=== PATIENT | female | born 1990 | race Caucasian/White ===

== ENCOUNTER 2017-06-08 11:12 | Emergency (ER) | payer MEDICAID ==
[~2017-06-08] VITALS: Ht 167.6 cm; Wt 102.2 kg
[2017-06-08 14:44] VITALS: BP 142/87
== END 2017-06-08 14:44 | disposition home or self-care (01) ==
LOC: ED 11:12
DX: S29.012A Strain of muscle and tendon of back wall of thorax, initial encounter (principal); X58.XXXA Exposure to other specified factors, initial encounter; Y93.89 Activity, other specified; Y92.89 Other specified places as the place of occurrence of the external cause; Y99.8 Other external cause status
CPT/HCPCS: 72072; J1885

== ENCOUNTER 2018-07-07 15:44 | Inpatient (IN) | payer OTHER ==
[~2018-07-07] VITALS: Ht 167.6 cm; Wt 104.9 kg
[2018-07-07 16:00] VITALS: Ht 167.6 cm; Wt 104.9 kg
[2018-07-07 17:28] LABS: BASOPHIL % 0.4 % (0-2); PLATELET COUNT 236 x10^3mcL (130-400); RED CELL DISTRIBUTION WIDTH 13.6 % (11.5-14.5)
[2018-07-07 17:32] LABS: CARBON DIOXIDE 26.8 mmol/L (21-32); CHLORIDE SERUM 100 mmol/L (98-107); CREATININE SERUM 0.7 mg/dL (0.6-1.0); GFR1 > 60 mL/min; GLUCOSE SERUM 165 mg/dL (74-106); POTASSIUM SERUM 3.5 mmol/L (3.5-5.1); SODIUM SERUM 133 mmol/L (136-145)
[2018-07-07 17:33] LABS: ALKALINE PHOSPHATASE 105 U/L (46-116); ALT/SGPT 109 U/L (14-59); AST/SGOT 34 U/L (15-37); BILIRUBIN TOTAL 0.8 mg/dL (0.20-1.00); TOTAL PROTEIN, SERUM 8.1 g/dL (6.4-8.2)
[2018-07-07 19:55] LABS: CHOLESTEROL/HDL RATIO 4.2; MAGNESIUM 1.7 mg/dL (1.8-2.4); PHOSPHOROUS 3.5 mg/dL (2.5-4.9)
[2018-07-07 20:46] VITALS: BP 110/73
[2018-07-07 21:01] VITALS: BP 116/73
[2018-07-07 22:49] LABS: microscopic required? NO
[2018-07-07 22:55] LABS: urine erythrocyte NEGATIVE (NEGATIVE)
[2018-07-07 23:26] LABS: AMPHETAMINE QUAL UR NONE DETECTED (See below)
[2018-07-08 05:27] VITALS: BP 97/50
[2018-07-08 06:59] LABS: CALCIUM 7.9 mg/dL (8.5-10.1); CARBON DIOXIDE 24.4 mmol/L (21-32); CHLORIDE SERUM 103 mmol/L (98-107); CREATININE SERUM 0.7 mg/dL (0.6-1.0); GFR1 > 60 mL/min; GLUCOSE SERUM 115 mg/dL (74-106); MAGNESIUM 1.9 mg/dL (1.8-2.4); PHOSPHOROUS 3.4 mg/dL (2.5-4.9); POTASSIUM SERUM 3.7 mmol/L (3.5-5.1); SODIUM SERUM 135 mmol/L (136-145)
[2018-07-08 07:12] LABS: BASOPHIL % 0.7 % (0-2); PLATELET COUNT 176 x10^3mcL (130-400); RED CELL DISTRIBUTION WIDTH 13.5 % (11.5-14.5)
[2018-07-08 07:55] VITALS: BP 123/81
[2018-07-08] MEDS ORDERED: NAP375 PO (12:01)
[2018-07-08 12:33] VITALS: BP 123/81
== END 2018-07-08 15:43 | disposition home or self-care (01) | DRG 760 ==
LOC: ED 15:44 → MU 19:20
PROVIDERS: Emergency Medicine; ADMIT Internal Medicine
DX: N83.202 Unspecified ovarian cyst, left side (principal); E87.1 Hypo-osmolality and hyponatremia; E83.42 Hypomagnesemia; R73.03 Prediabetes; E78.5 Hyperlipidemia, unspecified; Z68.37 Body mass index [BMI] 37.0-37.9, adult
CPT/HCPCS: 82962; J1885; J2270; J2405; J7030

== ENCOUNTER 2018-10-04 17:41 | Emergency (ER) | payer MEDICAID ==
[~2018-10-04] VITALS: Ht 167.6 cm; Wt 103.1 kg
[~2018-10-04 17:41] MED LIST: NAP375 PO
[2018-10-04 18:10] VITALS: Ht 167.6 cm; Wt 103.1 kg
[2018-10-04 20:07] VITALS: BP 127/84
== END 2018-10-04 20:07 | disposition home or self-care (01) ==
LOC: ED 17:41
DX: S16.1XXA Strain of muscle, fascia and tendon at neck level, initial encounter (principal); S39.012A Strain of muscle, fascia and tendon of lower back, initial encounter; S29.012A Strain of muscle and tendon of back wall of thorax, initial encounter; N83.209 Unspecified ovarian cyst, unspecified side; V49.49XA Driver injured in collision with other motor vehicles in traffic accident, initial encounter; Y93.I9 Activity, other involving external motion; Y92.413 State road as the place of occurrence of the external cause; Y99.8 Other external cause status